=== PATIENT | female | born 1935 | race Caucasian/White ===

== ENCOUNTER 2016-09-11 11:47 | Day surgery (SDC) | payer MEDICARE, BC ==
--- NOTE | 2016-09-11 03:55 | CONS ---
GASTROENTEROLOGY CONSULT/HISTORY AND PHYSICAL: DATE OF CONSULT: 09/09/16 DATE OF ADMISSION/PROCEDURE: 09/11/16 CONSULTING PHYSICIAN: Og Cali REASON FOR CONSULTATION: Jaundice in a woman with metastatic colon cancer. PROCEDURE: ERCP, 09/11/16, with anticipated metal stent placement. HISTORY OF PRESENT ILLNESS: This 81-year-old woman diagnosed with colon cancer in 2005 and having right hemicolectomy then had a relapse 3 or 4 years later. She had a negative postop colonoscopy twice when the relapse occurred. It has been predominantly peritoneal implants. She has had multiple chemotherapies. There was anasarca at one point a couple of years ago. Diastolic component congestive heart failure was thought to be part of that. She has not been on any chemo in 6 months. She had been feeling just fine. About 3 weeks ago, she had a 24-hour illness with vomiting, though there was no fever. It went away and she got back to baseline with no further emesis or nausea. She then noticed some darkening of her skin but thought it was winter light in her bathroom. Eventually, her urine turned darker and she was overtly jaundiced. She saw Dr Cali. Her bilirubin was at 9.2. CT scan showed retroperitoneal nodes and a dilated biliary tree. Her CEA, which had been 10 to 15 was noted to rise 38.6 a month ago and then 4 days ago 74. PAST MEDICAL HISTORY: 1. Colon cancer. 2. Status post right hemicolectomy. 3. Diastolic congestive heart failure - she has never had any coronary disease demonstrated. Her ejection fraction was greater than 50% in 2015. She is just managed with furosemide. 4. Mild renal insufficiency. 5. History of reflux - on omeprazole. 6. Hypothyroidism - on replacement. SOCIAL HISTORY: Her a couple of years ago. She lives alone. Her daughter, Arpan Jane, lives in [facility] ([phone]). She has another daughter in [place]. She understands that her situation is incurable. REVIEW OF SYSTEMS: No history of syncope, brain metastases, neurologic deficits , falls, fractures, prior jaundice, recurring vomiting or heartburn. No history of ulcer, skin rash, psoriasis, renal stones or hematuria. Her last chemo was October 2015. PHYSICAL EXAM: She is an intensely jaundiced woman sitting in a chair in the exam room, comfortable, reading a book intently, stating she is enjoying it. She denies any pain anywhere. She is not itching. HEENT exam is unremarkable. There is no adenopathy in the supraclavicular areas. Her lungs are clear. Heart sounds regular without a murmur. The abdomen is rounded, full and doughy with a matted feel in the right nia-abdomen. The liver seems enlarged and nontender. There is no tenderness anywhere. Rectal is deferred. Extremities show no edema. Neurologic is nonfocal. DIAGNOSTIC STUDIES/LAB DATA: CT reviewed - coronal images show a dilated biliary tree, best at image 26 of 90. Stomach is not distended. IMPRESSION: This 81-year-old woman with metastatic colon cancer certainly is still functionally quite vibrant. Her CEA rise is alarming but it appears she has enough functional capacity to benefit from a common duct stent if one can be placed. The detail of this were discussed including possibility of inability to place the stent or sepsis. Nonetheless, a good chance of palliation for a number of months is present and she understands that. There is no sign of cardiac disease or volume instability currently. [id number]/[facility] #: [id number] [facility]
[~2016-09-11 11:47] MED LIST: Buffered Lidocaine 1% SYR 3ML* 3 ML/SYR SYRINGE INTRADERM ONE; Dexamethasone IV* 4 MG/ML 1 ML (4 MG) IV SLOW PU ONE; Famotidine IV* 10 MG/ML 2 ML (20 mg) IV ONE
[2016-09-11] MEDS ORDERED: Dexamethasone IV* 4 MG/ML 1 ML (4 MG) ONE (12:02)
[2016-09-11] MEDS ORDERED: Famotidine IV* 10 MG/ML 2 ML (20 mg) ONE (12:02)
[2016-09-11] MEDS ORDERED: Buffered Lidocaine 1% SYR 3ML* 3 ML/SYR SYRINGE ONE (12:02)
[2016-09-11 13:07] LABS: Hematocrit 28 % (35-47); Hemoglobin 9.1 g/dl (12.0-16.0); Mean Corpuscular HGB Conc 33 g/dl (31-36); Mean Corpuscular Hemoglobin 30 pg (27-31); Mean Corpuscular Volume 91 fL (80-97); Mean Platelet Volume 9 um3 (7.4-10.4); Red Blood Count 3.07 10^6/ul (4.0-5.4); Red Cell Distribution Width 15 % (10.5-15); White Blood Count 11.5 10^3/ul (3.5-10.8)
[2016-09-11] MEDS ORDERED: DiMENhydriNATE IV* 50 MG/ML VIAL IV PUSH PRN (13:14)
[2016-09-11] MEDS ORDERED: Ondansetron INJ* 2 MG/ML VIAL IV PRN (13:14)
[2016-09-11] MEDS ORDERED: fentaNYL* 50 MCG/ML 2 ML VIAL (100 MCG VIAL) IV PRN (13:14)
[2016-09-11] MEDS ORDERED: PROCHLORPERAZINE INJ 5 MG/ML 2 ML VIAL IV PRN (13:14)
[2016-09-11 13:29] LABS: Albumin 3.4 g/dL (3.2-5.2); BUN/Creatinine Ratio 19.3 (8-20); EGFR African American 46.3 (>60); Globulin 3.1 g/dL (2-4); Potassium 4.3 mmol/L (3.5-5.0); Total Bilirubin 9.8 mg/dL (0.2-1.0); Total Protein 6.5 g/dL (6.4-8.9)
[2016-09-11] MEDS ORDERED: fentaNYL* 50 MCG/ML 2 ML VIAL (100 MCG VIAL) ONE (13:31)
[2016-09-11] MEDS ORDERED: Midazolam* 1 MG/ML 2 ML VIAL (2 MG) ONE (13:31)
[2016-09-11 13:43] LABS: Carcinoembryonic Antigen 86.3 ng/mL (0.1-5.0)
[2016-09-11 13:47] LABS: Albumin 3.4 g/dL (3.2-5.2); BUN/Creatinine Ratio 19.4 (8-20); Direct Bilirubin 5.3 mg/dL (0.03-0.18); EGFR African American 46.7 (>60); EGFR Non-African American 36.3 (>60); Globulin 3.1 g/dL (2-4); HDL Cholesterol 8.5 mg/dL; Indirect Bilirubin 4.4 mg/dL (0.3-1.0); Magnesium 1.8 mg/dL (1.9-2.7); One Over Creatinine 0.7 mg/dL (0.51-0.95); Phosphorus 2.2 mg/dL (2.5-5.0); Potassium 4.4 mmol/L (3.5-5.0); Total Bilirubin 9.7 mg/dL (0.2-1.0); Total Protein 6.5 g/dL (6.4-8.9)
[2016-09-11] MEDS ORDERED: Levofloxacin 500 MG IVPREMIX(* 500 MG/100 ML BAG IVPB ONE (13:53)
[2016-09-11] MEDS ORDERED: diPHENhydraMINE IV* 50 MG/ML 1 ml VIAL (BENADRYL) ONE (14:30)
[2016-09-11] MEDS ORDERED: Lidocaine 2% PF * 5 ML VIAL ONE (16:08)
[2016-09-11] MEDS ORDERED: Succinylcholine* 20 MG/ML 10 ML VIAL ONE (16:08)
[2016-09-11] MEDS ORDERED: Etomidate* 2 MG/ML 10 ML VIAL ONE (16:08)
[2016-09-11] MEDS ORDERED: Propofol* 10 MG/ML 20 ML BTL IV PUSH ONE (16:08)
[2016-09-11] MEDS ORDERED: Ondansetron INJ* 2 MG/ML VIAL ONE (16:08)
[2016-09-11 17:50] VITALS: BP 163/66
--- NOTE | 2016-09-12 10:42 | PRO ---
DATE: 09/11/16 REFERRING PHYSICIANS: Og Dang PROCEDURE: EGD and balloon dilation duodenal stricture to 18 mm with inability to pass side-viewing scope for ERCP. INDICATION: This 81-year-old woman who has been battling metastatic colorectal cancer for 10 years, for the first time over the last month has developed elevated LFTs and clear-cut obstructive jaundice. The patient was seen in the office and an extensive discussion was held regarding passage of the scope to place a metal stent. The patient's daughter, Arpan, was part of this discussion today. The patient was given Levaquin pre-procedure and also Benadryl. ENDOSCOPIST: Dr. Enriquez ANESTHESIOLOGIST: Dr. Munson FINDINGS: She is a jaundiced elderly woman, quite verbal and dynamic for her age. ERCP: The side-viewing scope was passed (assisted by temporary deflation of the tracheostomy tube) and limited views of the esophagus appeared normal. Limited views of the stomach appeared normal. The pylorus was wide open. In the bulb, there was restriction and the duodenum was not flexible. The scope could not be passed. Multiple orientations were tried, the patient was rolled in different positions. The scope was removed and a standard end-on diagnostic scope obtained. EGD: Esophagus - normal down to 39. Stomach - normal contours but no retained material whatsoever. Duodenum - the bulb had extensive scarring and deformity. The apex of the bulb had crevices. A passage to the second portion of the duodenum was identified and could be viewed, but was stiff and could not be intubated. A balloon dilator was inserted, placed down the lumen of the duodenum, and inflated sequentially to 15, 16.5, and 18 mm. Each resulted in some increase in the visualized second portion of the duodenum. After the last dilation, the diagnostic scope could pass into the third portion of the duodenum, but there was still sense of gripping and restriction. The anatomy was essentially compressed for 2 cm or 3 cm beyond the apex of the bulb. The side-viewing scope was then substituted for the diagnostic scope and could not pass this area. It seemed cleared that mechanically ERCP and Wallstent placement was not feasible. IMPRESSION: 1. 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 Duodenal restriction and incipient obstruction - from the same process and it is indeed remarkable that there is no gastric retention at this time, probably just because of the timing of obstruction being just a few days away and reduced intake from anorexia. This was discussed with Dr. Cali and options of referral will be reviewed with the patient and her daughter. [id number]/[facility] #: [id number] MTD[facility]
== END 2016-09-11 18:13 | disposition home or self-care (01) ==
LOC: OR 11:47
PROVIDERS: ATTEND Internal Medicine Gastroenterology
DX: K83.1 Obstruction of bile duct (principal); C19 Malignant neoplasm of rectosigmoid junction; R94.5 Abnormal results of liver function studies
CPT/HCPCS: 36415; 80053; 80061; 82248; 82378; 83735; 84100; 85027; 85610; J0330; J1100; J1200; J1956; J2250; J2405; J2704; J3010